=== PATIENT | male | born 1930 | race Caucasian/White ===

== ENCOUNTER 2018-04-23 14:43 | Outpatient (CLI) | payer MEDICARE ==
--- NOTE | 2018-04-23 17:04 | MRI ---
MR OF THE RIGHT ANKLE WITHOUT CONTRAST: 04/23/18 INDICATION: Right ankle pain. TECHNIQUE: Multiplanar and multisequence MR images were obtained of the right ankle without IV contrast. Due to patient discomfort, patient had difficulty holding still for the examination. Motion artifact slightl y limits image detail. FINDINGS: There is mild enthesopathic change off of the plantar and posterior calcaneus. There is subchondral c yst-like abnormality seen within the calcaneus subjacent to the sinus tarsi. Sinus tarsi otherwise pena s a normal signal intensity. The ATFL, PTFL, calcaneofibular, syndesmotic ligaments and deltoid ligam ent appear intact. The spring ligament appears intact. There is mild to moderate tendinosis of the Ac hilles tendon. Small amount of fluid is seen surrounding the Achilles tendon suspicious for a mild am ount of peritenonitis. No osteochondral defect is evident. The medial flexor tendon and peroneal tend ons appear within normal limits. The extensor tendons are normal appearing. The visualized Lisfranc l igament is intact. IMPRESSION: 1. 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 2. Suspected degenerative subchondral cyst-like abnormality involving the calcaneus subjacent to the sinus tarsi. POS: BRIJESH
== END 2018-04-23 14:44 | disposition home or self-care (01) ==
LOC: SCSMRI 14:43
PROVIDERS: ATTEND Orthopaedic Surgery
DX: M25.571 Pain in right ankle and joints of right foot (principal); M76.61 Achilles tendinitis, right leg

== ENCOUNTER 2018-09-05 19:59 | Inpatient (IN) | payer MEDICARE ==
[~2018-09-05 19:59] MED LIST: Iopamidol 370 76% 100 ML VIAL ONE; Iopamidol 370 76% 50 ML VIAL FS ONE
[2018-09-05] MEDS ORDERED: Adenosine 6 MG/2 ML VIAL ONE (20:08)
[2018-09-05] MEDS ORDERED: Verapamil 5 MG/2 ML VIAL ONE (20:08)
[2018-09-05] MEDS ORDERED: Nitroglycerin 100MG/250ML BOT 250 ML ONE (20:09)
[2018-09-05] MEDS ORDERED: Heparin 10,000 UNITS/1 ML VIAL ONE (20:17)
[2018-09-05] MEDS ORDERED: Clopidogrel Bisulfate 300 MG TAB ONE ×2 (20:17)
[2018-09-05] MEDS ORDERED: Aggrastat 12.5 MG/250 ML 250 ML ONE (20:48)
[2018-09-05] MEDS ORDERED: Nitroglycerin 0.4 MG TAB (25 Tab Bottle) SL PRN (20:56)
[2018-09-05] MEDS ORDERED: Morphine 2 MG/ML SYRINGE SLOW IVP PRN (20:56)
[2018-09-05] MEDS ORDERED: Mag-Al 1200 mg/1200 mg/30 ML UDCUP PO PRN (20:56)
[2018-09-05] MEDS ORDERED: Milk Of Magnesia 30 ML UDCUP PO PRN (20:56)
[2018-09-05] MEDS ORDERED: Aggrastat 12.5 MG/250 ML 250 ML IVPB SCH (21:00)
[2018-09-05] MEDS ORDERED: Sodium Chloride 0.9% 1,000 ML IV SCH (21:00)
[2018-09-05] MEDS: Atorvastatin Calcium 40 MG TAB PO SCH (22:03)
[2018-09-06 01:37] LABS: #Eosinphils 0.2 thou/uL (0.0-0.7); #Lymphocytes 2.7 thou/uL (1.20-3.40); #Monocytes 0.6 thou/uL (0.11-0.59); #Neutrophils 4.7 thou/uL (1.40-6.50); %Basophils 0.6 % (0.0-1.0); %Eosinophils 2.4 % (0.0-10.0); %Lymphocytes 32.5 % (21.0-51.0); %Monocytes 7.4 % (0.0-10.0); %Neutrophils 57.1 % (42.0-75.0); Mean Corpuscular HGB CONC 34.1 g/dL (32.0-36.0); Mean Corpuscular Hemoglobin 31.3 pg (27.0-31.0); Mean Corpuscular Volume 91.7 fL (78.0-98.0); Mean Platelet Volume 6.7 fL (7.4-10.4); Platelet Count 220 thou/uL (130-400); RBC Distribution Width 12.6 % (11.5-14.5); White Blood Cell (WBC) Count 8.2 thou/uL (4.8-10.8)
[2018-09-06 02:15] LABS: ALT (SGPT) 50 U/L (8-55); AST (SGOT) 257 U/L (5-34); Albumin 3.6 g/dL (3.4-4.8); Alkaline Phosphatase 69 U/L (40-150); Anion Gap 15 mmol/L (10-20); BUN (Urea Nitrogen) 14 mg/dL (8.4-25.7); Bilirubin, Total 0.3 mg/dL (0.2-1.2); Calc. Creatinine Clearance 92 mL/min (70-130); Calcium 9.4 mg/dL (7.8-10.44); Carbon Dioxide 26 mmol/L (23-31); Chloride 101 mmol/L (98-107); Estimated GFR-MDRD 90; Globulin 2.2 g/dL (2.4-3.5); Glucose 181 mg/dL (83-110); Potassium 3.7 mmol/L (3.5-5.1); Protein, Total 5.8 g/dL (5.8-8.1); Sodium 138 mmol/L (136-145)
[2018-09-06] MEDS ORDERED: Carvedilol 3.125 MG TAB PO SCH (09:00)
[2018-09-06 09:17] LABS: ALT (SGPT) 51 U/L (8-55); AST (SGOT) 209 U/L (5-34); Albumin 3.8 g/dL (3.4-4.8); Alkaline Phosphatase 81 U/L (40-150); Bilirubin, Direct 0.2 mg/dL (0.1-0.3); Bilirubin, Total 0.5 mg/dL (0.2-1.2)
[2018-09-06] MEDS: Aspirin Chewable 81 MG TAB PO SCH (09:23)
[2018-09-06] MEDS: Clopidogrel Bisulfate 75 MG TAB PO SCH (09:24)
[2018-09-06 10:03] LABS: CKMB 109.5 ng/mL (0-6.6)
[2018-09-06] MEDS ORDERED: Lisinopril 2.5 MG TAB PO SCH (12:00)
[2018-09-06] MEDS ORDERED: Lisinopril 5 MG TAB PO SCH (14:00)
--- NOTE | 2018-09-06 14:00 | HP ---
DATE OF CONSULTATION: 09/05/2018 CHIEF COMPLAINT: Acute NC. HISTORY OF PRESENT ILLNESS: Mr. Pandya is an 88-year-old gentleman, who has been seen and evaluated by Dr. Tony Steinberg in the past. He recently presented with acute onset of chest pain. He presented to the emergency room 4 hours after the onset. He was found to have ST-segment elevation. He was therefore life-flighted to [facility]. PAST MEDICAL HISTORY: Hypertension, hernia repair, carpal tunnel surgery, colonoscopy. HOME MEDICATIONS: Include indapamide. ALLERGIES: PENICILLIN. FAMILY HISTORY: Negative for CAD. REVIEW OF SYSTEMS: Ten-point review of systems is reviewed and as above, is otherwise negative. PHYSICAL EXAMINATION: GENERAL: Patient is a pleasant male, who is in no acute distress. The patient appears their stated age. He is currently having pain. VITAL SIGNS: Blood pressure 131/77, pulse 75, temperature afebrile. NEUROLOGIC: The patient is alert and oriented x3 with no focal neurologic deficits. HEENT: Sclerae without icterus. Mouth has moist mucous membranes with normal pallor. NECK: No JVD. Carotid upstroke brisk. No bruits bilaterally. LUNGS: Clear to auscultation with unlabored respirations. BACK: No scoliosis or kyphosis. CARDIAC: Regular rate and rhythm with normal S1 and S2. No S3 or S4 noted. No significant rubs, murmurs, thrills, or gallops noted throughout the precordium. PMI is not displaced. There is no parasternal heave. ABDOMEN: Soft, nontender, nondistended. No peritoneal signs present. No hepatosplenomegaly. No abnormal striae. EXTREMITIES: 2+ femoral and 2+ dorsalis pedis pulses. No cyanosis, clubbing, or edema. SKIN: No gross abnormalities. LABORATORY DATA: Pertinent labs pending. IMAGING STUDIES: EKG shows normal sinus rhythm and ST-segment elevation noted anteriorly. IMPRESSION: 1. Acute myocardial infarction. 2. Hypertension. RECOMMENDATIONS: At this point, we will recommend urgent coronary angiography and possible PCI. I discussed the procedure in full detail with Mr. Pandya. His family was not present. I discussed the procedure in full detail, risks included, but not limited to the following: , stroke, NC, need for emergency surgery, loss of limb, bleeding, and infection, as well as a reaction to the dye causing kidney failure and needing long-term dialysis. I also discussed the risks of PCI to include all of the above including coronary dissection and perforation in addition to acute stent thrombosis and restenosis. All questions about the procedure were answered. Given the above, the patient agreed to proceed with coronary angiography and possible PCI. All questions were answered. I also discussed drug-coated versus [id number] stent placement. There were no complications. We will proceed if needed. Further recommendations pending the above. Job ID: [id number]
[2018-09-06 16:01] LABS: CKMB 62.8 ng/mL (0-6.6); Critical Call CKMB RESULT DECREASING
[2018-09-06] MEDS: Atorvastatin Calcium 40 MG TAB PO SCH (21:12)
[2018-09-06] MEDS: Lisinopril 5 MG TAB PO SCH (21:12)
[2018-09-06] MEDS: Carvedilol 6.25 MG TAB PO SCH (21:12)
[2018-09-07 04:40] VITALS: BMI 31.0
[2018-09-07] MEDS: Aspirin Chewable 81 MG TAB PO SCH (07:48)
[2018-09-07] MEDS: Carvedilol 6.25 MG TAB PO SCH ×2 (07:48→19:37)
[2018-09-07] MEDS: Clopidogrel Bisulfate 75 MG TAB PO SCH (07:48)
[2018-09-07] MEDS: Lisinopril 5 MG TAB PO SCH ×2 (07:48→19:38)
[2018-09-07] MEDS: Atorvastatin Calcium 40 MG TAB PO SCH (19:37)
[2018-09-08 05:14] LABS: ALT (SGPT) 32 U/L (8-55); AST (SGOT) 48 U/L (5-34); Albumin 3.5 g/dL (3.4-4.8); Alkaline Phosphatase 73 U/L (40-150); Anion Gap 12 mmol/L (10-20); BUN (Urea Nitrogen) 13 mg/dL (8.4-25.7); Bilirubin, Direct 0.4 mg/dL (0.1-0.3); Bilirubin, Total 0.7 mg/dL (0.2-1.2); Calc. Creatinine Clearance 94 mL/min (70-130); Calcium 9.3 mg/dL (7.8-10.44); Carbon Dioxide 26 mmol/L (23-31); Chloride 104 mmol/L (98-107); Estimated GFR-MDRD Greater than 90; Glucose 154 mg/dL (83-110); Potassium 3.6 mmol/L (3.5-5.1); Protein, Total 5.5 g/dL (5.8-8.1); Sodium 138 mmol/L (136-145)
[2018-09-08] MEDS ORDERED: Lisinopril 5 MG TAB PO SCH (07:55)
[2018-09-08] MEDS: Aspirin Chewable 81 MG TAB PO SCH (09:23)
[2018-09-08] MEDS: Carvedilol 6.25 MG TAB PO SCH ×2 (09:24→20:41)
[2018-09-08] MEDS: Clopidogrel Bisulfate 75 MG TAB PO SCH (09:24)
[2018-09-08] MEDS: Lisinopril 10 MG TAB PO SCH ×2 (09:27→20:40)
[2018-09-08] MEDS: Atorvastatin Calcium 40 MG TAB PO SCH (20:40)
[2018-09-09 09:05] VITALS: TEMP 97.4
[2018-09-09] MEDS: Carvedilol 6.25 MG TAB PO SCH (09:08)
[2018-09-09] MEDS: Clopidogrel Bisulfate 75 MG TAB PO SCH (09:08)
[2018-09-09] MEDS: Lisinopril 10 MG TAB PO SCH (09:08)
[2018-09-09] MEDS: Aspirin Chewable 81 MG TAB PO SCH (09:08)
[2018-09-09 14:54] VITALS: BP 156/77
--- NOTE | 2018-09-09 15:58 | DIS ---
DATE OF ADMISSION: 09/05/2018 DATE OF DISCHARGE: 09/09/2018 DIAGNOSES: 1. Acute anterior wall myocardial infarction. 2. Ischemic cardiomyopathy. 3. Hypertension. HISTORY: The patient is a pleasant 88-year-old gentleman, who presented with acute onset of substernal chest pain. The patient presented to the emergency room, underwent emergent cardiac catheterization. HOSPITAL COURSE: The patient was found to have an occluded mid left anterior descending artery. The patient underwent PTCA and stent placement. The patient was found to have otherwise mild coronary artery disease. The patient was admitted to the ICU after undergoing PTCA and stent placement. He was found to have a peak troponin level of 74. The patient remained free of chest pain throughout his hospitalization. A followup echocardiogram revealed any ejection fraction of approximately 35% to 40% at the time of discharge. The patient was treated with Coreg, lisinopril. DISCHARGE MEDICATIONS: 1. Aspirin 81 daily. 2. Plavix 75 daily. 3. Lipitor 40 at bedtime. 4. Lisinopril 10 b.i.d. 5. Coreg 6.25 b.i.d. The patient will follow up with me at [facility] within 1 month. Job ID: [id number]
== END 2018-09-09 13:27 | disposition home or self-care (01) | DRG 247 ==
LOC: ER/OP 19:59 → CCU 20:33 → 2NO 09-07 10:12
PROVIDERS: ADMIT Internal Medicine Cardiovascular Disease; ATTEND Internal Medicine Cardiovascular Disease
PROC: 027035Z Dilation of Coronary Artery, One Artery with Two Drug-eluting Intraluminal Devices, Percutaneous Approach (ICD-10-PCS; principal; 2018-09-05)
PROC: 02C03ZZ Extirpation of Matter from Coronary Artery, One Artery, Percutaneous Approach (ICD-10-PCS; 2018-09-05)
PROC: 3E07317 Introduction of Other Thrombolytic into Coronary Artery, Percutaneous Approach (ICD-10-PCS; 2018-09-05)
DX: I21.09 ST elevation (STEMI) myocardial infarction involving other coronary artery of anterior wall (principal); I10 Essential (primary) hypertension; I25.5 Ischemic cardiomyopathy; I25.10 Atherosclerotic heart disease of native coronary artery without angina pectoris; Z98.890 Other specified postprocedural states; Z79.899 Other long term (current) drug therapy; Z88.0 Allergy status to penicillin
CPT/HCPCS: 36415; 76942; 80048; 80053; 80076; 82553; 84484; 85025; 85347; 92928; 92973; 92977; 93005; 93010; 93306; 93454; 93798; C1725; C1757; C1769; C1874; C1887; C9600; J0153; J1644; J3246

== ENCOUNTER 2021-12-19 14:58 | Inpatient (IN) | payer MEDICARE ==
[2021-12-19 15:58] LABS: #Eosinphils 0.2 thou/uL (0.0-0.7); #Lymphocytes 2.8 thou/uL (1.20-3.40); #Monocytes 0.6 thou/uL (0.11-0.59); #Neutrophils 6.3 thou/uL (1.40-6.50); %Basophils 0.4 % (0.0-1.0); %Eosinophils 1.6 % (0.0-10.0); %Lymphocytes 27.9 % (21.0-51.0); %Monocytes 5.9 % (0.0-10.0); %Neutrophils 64.2 % (42.0-75.0); Hemoglobin 17.7 g/dL (14.0-18.0); Mean Corpuscular HGB CONC 33.7 g/dL (32.0-36.0); Mean Corpuscular Hemoglobin 31.6 pg (27.0-31.0); Mean Corpuscular Volume 93.5 fl (78.0-98.0); Mean Platelet Volume 8.8 fL (7.4-10.4); Platelet Count 169 10x3/uL (130-400); RBC Distribution Width 12.6 % (11.5-14.5); White Blood Cell (WBC) Count 9.9 10x3/uL (4.8-10.8)
[2021-12-19 16:25] LABS: ALT (SGPT) 25 U/L (8-55); AST (SGOT) 23 U/L (5-34); Albumin 4.5 g/dL (3.4-4.8); Alkaline Phosphatase 118 U/L (40-110); Anion Gap 20 mmol/L (10-20); BUN (Urea Nitrogen) 36 mg/dL (8.4-25.7); Bilirubin, Total 1.7 mg/dL (0.2-1.2); Calc. Creatinine Clearance 0 mL/min (70-130); Carbon Dioxide 23 mmol/L (23-31); Chloride 104 mmol/L (98-107); Estimated GFR 36; Globulin 2.2 g/dL (2.4-3.5); Glucose 81 mg/dL (83-110); Potassium 4.6 mmol/L (3.5-5.1); Protein, Total 6.7 g/dL (5.8-8.1); Sodium 142 mmol/L (136-145)
[2021-12-19 16:41] LABS: CKMB 2.8 ng/mL (0-6.6)
[2021-12-19 17:46] LABS: Bacteria/HPF None Seen HPF (None Seen); Bilirubin Negative (Negative); Blood, Urine Trace (Negative); Clarity Clear (Clear); Glucose, Urine (Dipstick) Normal (Negative); Ketone, Urine Trace mg/dL (Negative); Leukocyte Negative Leu/uL (Negative); Nitrite Negative (Negative); Protein, Urine (Dipstick) Negative (Neg-Trace); RBC/HPF 0-3 HPF (0-3); Specific Gravity, Urine 1.019 (1.002-1.036); Squamous Epithelial 0-3 HPF (0-3); Urobilinogen Normal mg/dL (Less than 2); WBC/HPF 0-3 HPF (0-3)
[2021-12-19] MEDS ORDERED: Acetaminophen 325 MG TAB PO PRN (18:27)
[2021-12-19 19:15] LABS: Troponin I 0.031 ng/mL (< 0.028)
[2021-12-19 19:17] LABS: Lactic Acid 2.2 mmol/L (0.5-2.2)
[2021-12-19 22:12] LABS: Troponin I 0.015 ng/mL (< 0.028)
[2021-12-19] MEDS: Sodium Chloride 0.9% 1,000 ML IV SCH (22:41)
[2021-12-19 23:00] VITALS: BMI 23.4
[2021-12-20 05:09] LABS: #Eosinphils 0.2 thou/uL (0.0-0.7); #Lymphocytes 2.6 thou/uL (1.20-3.40); #Monocytes 0.6 thou/uL (0.11-0.59); %Basophils 0.3 % (0.0-1.0); %Eosinophils 2.4 % (0.0-10.0); %Lymphocytes 35.1 % (21.0-51.0); %Monocytes 8.5 % (0.0-10.0); %Neutrophils 53.7 % (42.0-75.0); Hemoglobin 15.9 g/dL (14.0-18.0); Mean Corpuscular HGB CONC 33.1 g/dL (32.0-36.0); Mean Corpuscular Hemoglobin 31.7 pg (27.0-31.0); Mean Corpuscular Volume 95.8 fl (78.0-98.0); Mean Platelet Volume 8.6 fL (7.4-10.4); Platelet Count 133 10x3/uL (130-400); RBC Distribution Width 12.5 % (11.5-14.5); Red Blood Cell (RBC) Count 4.99 mill/uL (4.70-6.10); White Blood Cell (WBC) Count 7.4 10x3/uL (4.8-10.8)
[2021-12-20 05:45] LABS: Anion Gap 15 mmol/L (10-20); BUN (Urea Nitrogen) 36 mg/dL (8.4-25.7); Calc. Creatinine Clearance 47 mL/min (70-130); Carbon Dioxide 20 mmol/L (23-31); Chloride 108 mmol/L (98-107); Potassium 3.9 mmol/L (3.5-5.1); Sodium 139 mmol/L (136-145)
[2021-12-20 05:46] LABS: ALT (SGPT) 21 U/L (8-55); AST (SGOT) 22 U/L (5-34); Albumin 3.6 g/dL (3.4-4.8); Alkaline Phosphatase 96 U/L (40-110); Bilirubin, Total 1.1 mg/dL (0.2-1.2); Calcium 8.7 mg/dL (7.8-10.44); Estimated GFR 59; Globulin 1.9 g/dL (2.4-3.5); Glucose 78 mg/dL (83-110); Protein, Total 5.5 g/dL (5.8-8.1)
[2021-12-20] MEDS ORDERED: Iopamidol 370 76% 100 ML VIAL ONE (08:45)
[2021-12-20] MEDS ORDERED: Aspirin 81 mg Enteric Coated Tablet PO SCH (09:00)
[2021-12-20] MEDS: Clopidogrel Bisulfate 75 MG TAB PO SCH (10:05)
[2021-12-20] MEDS: Sodium Chloride 0.9% 1,000 ML IV SCH ×2 (10:05→21:52)
[2021-12-20] MEDS ORDERED: Sodium Chloride 0.9% 250 ML IV SCH (10:30)
[2021-12-20] MEDS ORDERED: Atorvastatin Calcium 40 MG TAB PO SCH (21:00)
[2021-12-20] MEDS: Famotidine 20 MG TAB PO SCH (21:52)
[2021-12-21 05:05] LABS: #Eosinphils 0.2 thou/uL (0.0-0.7); #Lymphocytes 2.4 thou/uL (1.20-3.40); #Monocytes 0.5 thou/uL (0.11-0.59); %Basophils 0.3 % (0.0-1.0); %Lymphocytes 39.3 % (21.0-51.0); %Monocytes 8.7 % (0.0-10.0); %Neutrophils 48.9 % (42.0-75.0); Mean Corpuscular HGB CONC 33.1 g/dL (32.0-36.0); Mean Corpuscular Hemoglobin 31.2 pg (27.0-31.0); Mean Corpuscular Volume 94.3 fl (78.0-98.0); Mean Platelet Volume 8.8 fL (7.4-10.4); Platelet Count 133 10x3/uL (130-400); RBC Distribution Width 12.5 % (11.5-14.5); Red Blood Cell (RBC) Count 5.14 mill/uL (4.70-6.10); White Blood Cell (WBC) Count 6.2 10x3/uL (4.8-10.8)
[2021-12-21 05:14] LABS: ALT (SGPT) 18 U/L (8-55); AST (SGOT) 23 U/L (5-34); Albumin 3.4 g/dL (3.4-4.8); Alkaline Phosphatase 96 U/L (40-110); Anion Gap 15 mmol/L (10-20); BUN (Urea Nitrogen) 25 mg/dL (8.4-25.7); Bilirubin, Total 1.2 mg/dL (0.2-1.2); Calc. Creatinine Clearance 69 mL/min (70-130); Calcium 8.7 mg/dL (7.8-10.44); Carbon Dioxide 19 mmol/L (23-31); Chloride 110 mmol/L (98-107); Estimated GFR 85; Globulin 1.9 g/dL (2.4-3.5); Glucose 72 mg/dL (83-110); Magnesium 1.8 mg/dL (1.6-2.6); Phosphorus 2.5 mg/dL (2.3-4.7); Potassium 3.9 mmol/L (3.5-5.1); Protein, Total 5.3 g/dL (5.8-8.1); Sodium 140 mmol/L (136-145)
[2021-12-21 08:59] VITALS: TEMP 97.5
[2021-12-21] MEDS ORDERED: Aspirin Chewable 81 MG TAB PO SCH (09:00)
[2021-12-21] MEDS ORDERED: Donepezil HCl 10 MG TAB PO SCH (09:00)
[2021-12-21] MEDS: Clopidogrel Bisulfate 75 MG TAB PO SCH (09:35)
[2021-12-21] MEDS: Famotidine 20 MG TAB PO SCH (09:36)
[2021-12-21 13:32] VITALS: BP 161/75
== END 2021-12-21 14:00 | disposition home or self-care (01) | DRG 641 ==
LOC: ERS 14:58 → 2NO 18:13 → OBSVTOIN 12-20 14:12
PROVIDERS: ADMIT Internal Medicine; ATTEND Internal Medicine
PROC: 4B02XSZ Measurement of Cardiac Pacemaker, External Approach (ICD-10-PCS; principal; 2021-12-20)
DX: E86.0 Dehydration (principal); N17.9 Acute kidney failure, unspecified; F03.90 Unspecified dementia, unspecified severity, without behavioral disturbance, psychotic disturbance, mood disturbance, and anxiety; I25.5 Ischemic cardiomyopathy; I10 Essential (primary) hypertension; E78.5 Hyperlipidemia, unspecified; I25.10 Atherosclerotic heart disease of native coronary artery without angina pectoris; H90.41 Sensorineural hearing loss, unilateral, right ear, with unrestricted hearing on the contralateral side; I95.1 Orthostatic hypotension; Z88.6 Allergy status to analgesic agent; Z86.73 Personal history of transient ischemic attack (TIA), and cerebral infarction without residual deficits; I25.2 Old myocardial infarction; Z88.0 Allergy status to penicillin; Z88.8 Allergy status to other drugs, medicaments and biological substances; Z79.899 Other long term (current) drug therapy; Z79.82 Long term (current) use of aspirin; Z79.02 Long term (current) use of antithrombotics/antiplatelets; Z95.5 Presence of coronary angioplasty implant and graft; Z87.891 Personal history of nicotine dependence; Z95.0 Presence of cardiac pacemaker
CPT/HCPCS: 36415; 51701; 70496; 70498; 71045; 74176; 80053; 81003; 81015; 82533; 82553; 83605; 83735; 83880; 84100; 84145; 84443; 84484; 85025; 93005; 93306; 96360; 96361; G0378; J7030; J7050; Q9967; U0003; U0005